=== PATIENT | female | born 1995 | race Caucasian/White ===

== ENCOUNTER 2017-03-11 07:26 | Emergency (ER) | payer OTHER ==
[~2017-03-11] VITALS: Ht 165.1 cm; Wt 105.3 kg
[~2017-03-11 07:26] MED LIST: ALBU1AER9 INH; BCPILLS PO; OMEP20CA9 PO; RANI300T2 PO; RRALBUT083 INH
[2017-03-11 07:40] VITALS: Ht 165.1 cm; Wt 105.3 kg
[2017-03-11] MEDS ORDERED: CEFAZOLIN SOD 1000MG/55 ML D5W IV STA (07:55)
[2017-03-11] MEDS ORDERED: KETOROLAC TROMETHAMINE 30 MG/ML VIAL IV STA (07:55)
[2017-03-11 08:14] LABS: BASO % 0.3 %; BASO ABS # 0.04 K/uL (0-0.2); COMPLETE YES; EOS % 5.6 %; HEMATOCRIT 40.8 % (37-47); IG% 0.2 %; LYMPH % 17.8 %; LYMPH ABS # 2.06 K/uL (1.2-3.4); MEAN CELL VOLUME 89.7 fL (80-100); MEAN CORPUSCULAR HEMOGLOBIN 29.9 pg (25-34); MEAN CORPUSCULAR HGB CONC 33.3 g/dl (32-36); MEAN PLATELET VOLUME 9.3 fL (7.4-10.4); MONO % 5.4 %; NEUT % 70.7 %; PLATELET COUNT 283 K/uL (130-400); RED BLOOD COUNT 4.55 M/uL (4.2-5.4)
[2017-03-11] MEDS ORDERED: CEFAZOLIN IV 3,000 MG in DEXTROSE 5% 50ML IV STA (08:14)
--- NOTE | 2017-03-11 08:27 | DIAGNOSTIC IMAGING REPORT ---
RIGHT FOOT MIN 3 VIEWS ROUTINE CLINICAL HISTORY: Right foot infection. COMPARISON: None. DISCUSSION: 3 views reveal no acute fractures. There is mild age-indeterminate irregularity involving the tuft of the distal phalanx the fifth toe.. IMPRESSION: 1. Dorsal soft tissue swelling 2. Mild age-indeterminate irregularity involving the tuft of the distal phalanx of the fifth toe Electronically signed by: Renny Koch M.D. 03/11/2017 8:25 AM Dictated Date/Time: 03/11/2017 8:23 AM
[2017-03-11] MEDS ORDERED: CEPH500C2 PO (08:29)
[2017-03-11 08:31] LABS: CREATININE 0.8 mg/dl (0.60-1.20)
[2017-03-11 08:32] LABS: BUN/CREATININE RATIO 12.6 (10-20); CALCIUM 9.1 mg/dl (8.5-10.1)
--- NOTE | 2017-03-11 10:39 | EMERGENCY ROOM VISIT NOTE ---
History Report prepared by Geo: Melida Swan Under the Supervision of: Dr. Kaleb Caban D.O. First contact with patient: 07:52 Chief Complaint: WOUND INFECTION Stated Complaint: SWELLING, NUMBNESS, SEVERE PAIN, INFECTION TO FOOT Nursing Triage Summary: Pt reports right foot pain, swelling and redness. Pt states she thought it was a bug bite that she scratched. Yesterday started throbbing. Pt states, "I can't feel my toes. I saw the dr yesterday and she gave me Keflex. It's just so much worse." History of Present Illness The patient is a 21 year old female who presents to the Emergency Room with complaints of worsening right foot pain starting 2 days ago. The patient has what she believes to be a bug bite on her right foot. She has been scratching at the bite. She reports redness and swelling. Yesterday she saw her PCP and was started on Keflex. Today the pain and swelling seem worse. She scratched and some of her skin came off today. She denies any redness in the leg. She denies any history of MRSA or diabetes. She denies any history of skin infection. She denies any other medical problems. Source of History: patient Onset: 2 days ago Position: foot (right) Quality: other (pain) Timing: worsening Note: Pt reports right foot swelling and redness. Pt denies leg redness. Review of Systems See HPI for pertinent positives & negatives. A total of 10 systems reviewed and were otherwise negative. Past Medical & Surgical Medical Problems: (1) Asthma (2) Bronchitis with asthma, acute (3) Interstitial Emphysema (4) Otitis Media Nos (5) Pneumomediastinum (6) Tobacco abuse disorder Surgical Problems: (1) No significant past surgical history Family History Patient reports no known family medical history. Social History Smoking Status: Current Every Day Smoker Alcohol Use: none Marital Status: single Housing Status: lives with family Occupation Status: employed Current/Historical Medications Scheduled Control Pills ( Control Pills), 1 TAB PO DAILY Cephalexin Monohydrate (Keflex), 500 MG PO TID Scheduled PRN Omeprazole (Prilosec), 20 MG PO DAILY PRN for Indigestion Ranitidine (Zantac), 300 MG PO HS PRN for Indigestion Allergies Coded Allergies: No Known Allergies (Unverified , 03/15/16) Physical Exam Vital Signs Date Time Temp Pulse Resp B/P (MAP) Pulse Ox O2 Delivery O2 Flow Rate FiO2 03/11/17 10:42 37.4 90 20 121/88 97 Room Air 03/11/17 08:48 79 18 119/65 98 Room Air 03/11/17 07:40 37.8 116 20 155/82 96 Room Air Physical Exam CONSTITUTIONAL/VITAL SIGNS: Reviewed / noted above. GENERAL: Non-toxic in appearance. INTEGUMENTARY: Warm, dry, and [place]. HEAD: Normocephalic. EYES: without scleral icterus or trauma. ENT/OROPHARYNX: clear and moist. LYMPHADENOPATHY/NECK: Is supple without lymphadenopathy or meningismus. RESPIRATORY: Lungs clear and equal. CARDIOVASCULAR: Regular rate and rhythm. GI/ABDOMEN: Soft and nontender. No organomegaly or pulsatile mass. No rebound or guarding. Normal bowel sounds. EXTREMITIES: Warm and well perfused. Dorsal aspect of right foot edematous and erythematous with a scrape of the skin on the dorsal aspect about the size of a fingernail in width and 3 cm in length located within the erythematous area just proximal to the 3rd MTP joint BACK: No CVA tenderness. NEUROLOGICAL: Intact without focal deficits. PSYCHIATRIC: normal affect. MUSCULOSKELETAL: Normally developed with good muscle tone. Medical Decision & Procedures ER Provider Diagnostic Interpretation: X ray results and stated below per my interpretation and radiology interpretation. RIGHT FOOT MIN 3 VIEWS ROUTINE CLINICAL HISTORY: Right foot infection. COMPARISON: None. DISCUSSION: 3 views reveal no acute fractures. There is mild age-indeterminate irregularity involving the tuft of the distal phalanx the fifth toe.. IMPRESSION: 1. Dorsal soft tissue swelling 2. Mild age-indeterminate irregularity involving the tuft of the distal phalanx of the fifth toe Electronically signed by: Renny Koch M.D. 03/11/2017 8:25 AM Dictated Date/Time: 03/11/2017 8:23 AM Laboratory Results 03/11/17 08:05 Red Blood Count 4.55, Mean Corpuscular Volume 89.7, Mean Corpuscular Hemoglobin 29.9, Mean Corpuscular Hemoglobin Concent 33.3, Mean Platelet Volume 9.3, Neutrophils (%) (Auto) 70.7, Lymphocytes (%) (Auto) 17.8, Monocytes (%) (Auto) 5.4, Eosinophils (%) (Auto) 5.6, Basophils (%) (Auto) 0.3, Neutrophils # (Auto) 8.20, Lymphocytes # (Auto) 2.06, Monocytes # (Auto) 0.63, Eosinophils # (Auto) 0.65, Basophils # (Auto) 0.04 03/11/17 08:05 Test 03/11/17 08:05 White Blood Count 11.60 K/uL (4.8-10.8) Red Blood Count 4.55 M/uL (4.2-5.4) Hemoglobin 13.6 g/dL (12.0-16.0) Hematocrit 40.8 % (37-47) Mean Corpuscular Volume 89.7 fL (80-100) Mean Corpuscular Hemoglobin 29.9 pg (25-34) Mean Corpuscular Hemoglobin Concent 33.3 g/dl (32-36) Platelet Count 283 K/uL (130-400) Mean Platelet Volume 9.3 fL (7.4-10.4) Neutrophils (%) (Auto) 70.7 % Lymphocytes (%) (Auto) 17.8 % Monocytes (%) (Auto) 5.4 % Eosinophils (%) (Auto) 5.6 % Basophils (%) (Auto) 0.3 % Neutrophils # (Auto) 8.20 K/uL (1.4-6.5) Lymphocytes # (Auto) 2.06 K/uL (1.2-3.4) Monocytes # (Auto) 0.63 K/uL (0.11-0.59) Eosinophils # (Auto) 0.65 K/uL (0-0.5) Basophils # (Auto) 0.04 K/uL (0-0.2) RDW Standard Deviation 43.3 fL (36.4-46.3) RDW Coefficient of Variation 13.1 % (11.5-14.5) Immature Granulocyte % (Auto) 0.2 % Immature Granulocyte # (Auto) 0.02 K/uL (0.00-0.02) Anion Gap 6.0 mmol/L (3-11) Est Creatinine Clear Calc Drug Dose 134.0 ml/min Estimated GFR () 122.2 Estimated GFR (Non- 105.4 BUN/Creatinine Ratio 12.6 (10-20) Calcium Level 9.1 mg/dl (8.5-10.1) Laboratory results as stated above per my review. Medications Administered Medications (Trade) Dose Ordered Sig/Lesvia Route Start Time Stop Time Status Last Admin Dose Admin Ketorolac Tromethamine (Toradol Inj) 30 mg NOW STAT IV 03/11/17 07:55 03/11/17 07:57 DC 03/11/17 08:14 30 MG Cefazolin Sodium 3000 mg/Dextrose 65 ml @ 130 mls/hr NOW STAT IV 03/11/17 08:14 03/11/17 08:43 DC 03/11/17 08:24 130 MLS/HR ED Course 0752: Previous medical records were reviewed. The patient was evaluated in room A11B. A complete history and physical examination was performed. 0755: Toradol Inj 30 mg IV. 0814: Cefazolin Sodium 3,000 mg/Dextrose 65 ml @ 130 mls/hr IV. 1041: On reevaluation, the patient is resting comfortably. I discussed the results and findings with the patient. She verbalized agreement of the treatment plan. She was discharged home. Medical Decision Differential diagnosis: Etiologies such as cellulitis, abscess, MRSA infection, DVT, necrotizing fasciitis, dermatitis, drug eruption, as well as others were entertained. This is a 21-year-old female who presents to the ED with a chief complaint of right foot cellulitis. The patient was started on Keflex yesterday by the PCP. The patient states that she scratched the top of her right foot with a finger now because she thought it was a bug bite. She developed some erythema and swelling to the dorsal aspect of the foot. The patient's exam reveals edema as well as erythema to the dorsal aspect of the right foot. There is no red streaks up the leg. There is no swelling or discomfort to the plantar aspect of the foot. The CBC and PRP were normal. A foot x-ray did not show any bony lesions but there was soft tissue swelling. The patient was treated with IV Ancef. She will continue Keflex. She was told the results. She is felt to be stable for discharge. Medication Reconcilliation Current Medication List: was personally reviewed by me Blood Pressure Screening Patient's blood pressure: Normal blood pressure Blood pressure disposition: Did not require urgent referral Impression Primary Impression: Cellulitis Additional Impression: Cellulitis of foot, right Scribe Attestation The scribe's documentation has been prepared under my direction and personally reviewed by me in its entirety. I confirm that the note above accurately reflects all work, treatment, procedures, and medical decision making performed by me. Departure Information Dispostion Home / Self-Care Referrals Ashley Ayers (PCP) Patient Instructions [facility] Additional Instructions Continue Keflex Take Tylenol or Motrin as needed for pain. Follow-up with your doctor in 3-5 days for recheck. Return to the emergency department should he develop fevers, vomiting, increasing redness up the leg, other concerns. Problem Qualifiers
[2017-03-11 10:42] VITALS: BP 121/88; PULSE 90; TEMP 37.4; O2SAT 97
== END 2017-03-11 10:46 | disposition home or self-care (01) ==
LOC: C.EDB 07:27 → C.EDA 10:46
DX: L03.115 Cellulitis of right lower limb (principal); J45.909 Unspecified asthma, uncomplicated; J98.2 Interstitial emphysema; F17.200 Nicotine dependence, unspecified, uncomplicated; Z79.3 Long term (current) use of hormonal contraceptives